=== PATIENT | male | born 1950 | race Caucasian/White ===

== ENCOUNTER → 2017-12-28 09:06 | Outpatient (CLI) | payer MEDICARE, SELFPAY ==
[2017-12-28 10:32] LABS: Alanine Aminotransferase 33 IU/L (21-72); Albumin 4.1 g/dL (3.5-5.0); Albumin Globulin Ratio 1.4 (1.0-2.8); Alkaline Phosphatase 59 U/L (38-126); Aspartate Aminotransferase 24 IU/L (17-59); BUN Creatinine Ratio 24.4 (6-22); Bilirubin Total 0.4 mg/dL (0.2-1.3); Blood Urea Nitrogen 22 mg/dL (9-20); Calcium 9.3 mg/dL (8.4-10.2); Carbon Dioxide 26 mmol/L (22-32); Chloride 106 mmol/L (98-107); Cholesterol 143 mg/dL (140-199); Estimated Glomerular Filt Rate > 60.0 mL/min (>60); Globulin 2.9 g/dL (1.7-4.1); Glucose 98 mg/dL (80-110); HDL Cholesterol 41 mg/dL (40-60); HEMOLYSIS < 15 (0-50); LDL Cholesterol Calculated 85 mg/dL (<100); Potassium 4.3 mmol/L (3.4-5.1); Sodium 144 mmol/L (137-145); Triglycerides 85 mg/dL (35-150)
[2017-12-28 10:50] LABS: Prostate Specific Antigen Scrn 0.482 ng/mL (0.1-4.0)
[2017-12-28 12:27] LABS: Free T3, Triiodothyronine Free 3.45 pg/mL (2.77-5.27); Free T4, Direct Thyroxine 1.24 ng/dL (0.78-2.19)
== END ==
PROVIDERS: PCP Internal Medicine; Visit Provider Internal Medicine
DX: E03.9 Hypothyroidism, unspecified (principal); E78.5 Hyperlipidemia, unspecified; Z12.5 Encounter for screening for malignant neoplasm of prostate
CPT/HCPCS: 36415; 80053; 80061; 84439; 84443; 84481; G0103

== ENCOUNTER → 2019-04-05 08:30 | Outpatient (CLI) | payer MEDICARE, SELFPAY ==
[2019-04-05 09:27] LABS: Add Manual Diff / Slide Review NO; Basophils Absolute Auto 200 /uL (0-100); Basophils Percent Auto 2.7 % (0-2); Eosinophils Absolute Auto 400 /uL (0-450); Eosinophils Percent Auto 6.9 % (2-4); Hematocrit 39.6 % (41-53); Hemoglobin 13.6 g/dL (13.5-17.5); Lymphocytes Absolute Auto 2400 /uL (1100-4500); Mean Corpuscular HGB Conc 34.3 % (30-36); Mean Corpuscular Hemoglobin 31.3 PG (26-34); Mean Corpuscular Volume 91.5 fL (80-100); Monocytes Absolute Auto 500 /uL (0-900); Monocytes Percent Auto 8.8 % (3-14); Neutrophils Absolute Auto 2400 /uL (1500-7000); Neutrophils Percent Auto 40.6 % (50-75); Platelet Count 249 X10^3/uL (150-400); Red Blood Cell Count 4.33 X10^6/uL (4.5-5.9); Red Cell Distribution Width 12.6 % (11.6-14.8); White Blood Cell Count 5.9 X10^3/uL (4.5-11.0)
[2019-04-05 09:42] LABS: Alanine Aminotransferase 21 IU/L (<50); Albumin 4.2 g/dL (3.5-5.0); Albumin Globulin Ratio 1.6 (1.0-2.8); Alkaline Phosphatase 46 U/L (38-126); Aspartate Aminotransferase 27 IU/L (17-59); Bilirubin Total 0.6 mg/dL (0.2-1.3); Blood Urea Nitrogen 16 mg/dL (9-20); Calcium 9.3 mg/dL (8.4-10.2); Carbon Dioxide 27 mmol/L (22-32); Chloride 102 mmol/L (98-107); Cholesterol 242 mg/dL (140-199); Estimated Glomerular Filt Rate > 60.0 mL/min (>60); Globulin 2.7 g/dL (1.7-4.1); Glucose 99 mg/dL (80-110); HDL Cholesterol 41 mg/dL (40-60); HEMOLYSIS < 15 (0-50); LDL Cholesterol Calculated 172 mg/dL (<100); Potassium 4.8 mmol/L (3.4-5.1); Sodium 137 mmol/L (137-145); Total Protein 6.9 g/dL (6.3-8.2); Triglycerides 144 mg/dL (35-150)
[2019-04-05 10:11] LABS: TSH w/ Reflex to FT4 2.78 uIU/mL (0.47-4.68)
== END ==
PROVIDERS: PCP Internal Medicine; Visit Provider Internal Medicine
DX: E03.9 Hypothyroidism, unspecified (principal); K21.9 Gastro-esophageal reflux disease without esophagitis; E78.5 Hyperlipidemia, unspecified
CPT/HCPCS: 36415; 80053; 80061; 84403; 84443; 85025

== ENCOUNTER → 2019-05-09 14:56 | Outpatient (CLI) | payer MEDICARE, SELFPAY ==
[2019-05-09 15:32] LABS: Add Manual Diff / Slide Review NO; Basophils Absolute Auto 100 /uL (0-100); Basophils Percent Auto 1.3 % (0-2); Eosinophils Absolute Auto 300 /uL (0-450); Eosinophils Percent Auto 4.8 % (2-4); Hematocrit 39.3 % (41-53); Hemoglobin 13.6 g/dL (13.5-17.5); Lymphocytes Absolute Auto 2300 /uL (1100-4500); Lymphocytes Percent Auto 31.5 % (25-40); Mean Corpuscular HGB Conc 34.6 % (30-36); Mean Corpuscular Hemoglobin 31.5 PG (26-34); Mean Corpuscular Volume 91.1 fL (80-100); Monocytes Absolute Auto 500 /uL (0-900); Monocytes Percent Auto 6.9 % (3-14); Neutrophils Absolute Auto 4000 /uL (1500-7000); Neutrophils Percent Auto 55.5 % (50-75); Platelet Count 258 X10^3/uL (150-400); Red Blood Cell Count 4.31 X10^6/uL (4.5-5.9); Red Cell Distribution Width 12.5 % (11.6-14.8); White Blood Cell Count 7.3 X10^3/uL (4.5-11.0)
== END ==
PROVIDERS: PCP Internal Medicine; Visit Provider Internal Medicine
DX: D64.9 Anemia, unspecified (principal)
CPT/HCPCS: 36415; 85025

== ENCOUNTER 2019-10-19 10:01 | Emergency (ER) | payer MEDICARE, SELFPAY ==
[2019-10-19 10:02] VITALS: BP 155/74; PULSE 65; RESP 15; TEMP 36.7; O2SAT 99; BMI 24.8
--- NOTE | 2019-10-19 10:58 | ED_ITS ---
HPI - Fall <Una Mcintyre PA-C - Last Filed: 10/19/19 22:53> General Chief Complaint: Fall Stated Complaint: FELL OFF LADDER YESTERDAY,HIT BACK OF HEAD Time Seen by Provider: 10/19/19 10:57 Source: patient Mode of arrival: Ambulatory History of Present Illness HPI Narrative: This is a 69-year-old gentleman with a history of arthritis who presents to the emergency department complaining of worsening headache, dizziness since this morning after sustaining a fall yesterday onto concrete and hitting the back of his head. He says yesterday around 4:00 p.m. he was standing a few feet up on the ladder and went to step onto a retaining wall and the ladder tipped over to the side causing him to fall backwards hitting his head on concrete. He says he did not lose consciousness, no one saw it happen however his was in the area and she heard this latter fall and arrives shortly after he says she did not notice anything abnormal in his speech patterns or mentation and that he was conscious immediately afterwards. He laid there for a while and then went inside had a mild headache and a goose egg on the top/ back of his head. He woke in the middle of the night to turn and he felt dizzy with turning over and this morning when he woke up he was having intermittent dizziness issues. He has difficulty describing this although he says he feels like it is affecting his balance a little bit and he thinks that his dizziness may be associated with movement. He says he is not experiencing dizziness right now. His headache is a 7/10; he says he normally never gets headaches and for him a very severe headache would be 5/10 so this is worse than any headache he has ever had. He says his headache was bad when he woke up this morning but it seemed to ?get worse when I ate a breakfast. He describes the headache as an aching band with constant pain that goes around his head entirely; encompassing his eyes and sinuses and nose and then encircling to the back of his head. He had a little bit of soreness in his shoulders after this happened; he thinks that his head bounced off of the concrete but he has not had any neck pain associated with this. He does not take any blood thinners however he notes he takes naproxen every day for his arthritis. He denies loss of consciousness, any numbness or tingling, weakness in his extremities, vision changes, syncope, lightheadedness, nausea, vomiting, blood or drainage from his ears, nose, or any other symptoms. He states his head injury is an isolated injury and he did not hurt anything else. MD complaint: fall Onset (ago): hour(s) (18) Fall from: from height (distance) (8 ft) Fall witnessed: no Place fall occurred: home Loss of consciousness: none Prolonged down time: minute(s) (4) Symptoms prior to fall: none Context: tripped/slipped Location of injury: head Severity: severe Severity scale (1-10): 7 Quality: aching Associated symptoms (after fall): vertigo (dizziness) Related Data Home Medications Medication Instructions Recorded Confirmed LEVOTHYROXINE SODIUM (Synthroid) 112 mcg PO #0 01/28/10 11/08/17 atorvastatin [Lipitor] 20 mg PO HS #0 01/28/10 11/08/17 naproxen sodium 440 mg PO BID #0 07/30/11 11/08/17 azelastine 2 spray INTRANASAL BID #0 01/15/17 11/08/17 gabapentin [Neurontin] 600 mg PO SEE INSTRUCTIONS #0 01/15/17 11/08/17 ranitidine HCl 150 mg PO HS #0 01/15/17 11/08/17 ascorbic acid (vitamin C) 100 mg PO QDAY #0 01/19/17 11/08/17 cholecalciferol (vitamin D3) PO QDAY #0 01/19/17 11/08/17 [Vitamin D3] fluticasone propionate [Flonase 2 spray INTRANASAL QDAY #0 01/19/17 11/08/17 Allergy Relief] multivitamin [Multiple Vitamins] 1 tab PO QDAY #0 01/19/17 11/08/17 omega 1-foe-ytq-fish oil [Fish Oil] PO QDAY #0 01/19/17 11/08/17 sildenafil (pulm.hypertension) 20 20 mg PO TID 11/08/17 11/08/17 mg tablet Allergies Allergy/AdvReac Type Severity Reaction Status Date / Time amoxicillin [AMOXICILLIN] Allergy Intermediate Verified 10/19/19 10:07 Penicillins [PENICILLINS] Allergy Intermediate Verified 10/19/19 10:07 SULFA Allergy Intermediate RASH Uncoded 11/08/17 19:02 Review of Systems <Una Mcintyre PA-C - Last Filed: 10/19/19 22:53> Review of Systems Narrative: GENERAL: Denies chills, fatigue, malaise, fever, sweats. HEENT: Denies sinus pain, ear pain, sore throat, difficulty swallowing, positive for intermittent dizziness. RESPIRATORY: Denies dyspnea, cough, wheezing, hemoptysis, sputum. CARDIOVASCULAR: Denies chest pain, palpitations, orthopnea, edema, GASTROINTESTINAL: Denies nausea, vomiting, abdominal pain, diarrhea, constipation, melena. : Denies dysuria, frequency, incontinence, hematuria, urinary retention. MUSCULOSKELETAL: denies weakness, joint pain, or bony pain SKIN: Denies rash, skin lesions, or other NEUROLOGIC: Denies weakness, positive for headache, denies numbness, change in s peech, confusion, seizures, incoordination. PSYCHIATRIC: No concerning psychosocial issues. 12 point review of systems is negative except for those stated above Patient History <Una Mcintyre PA-C - Last Filed: 10/19/19 22:53> Social History Smoking Status: Never smoker alcohol intake: current Smoking Status: Never smoker alcohol intake frequency: holidays/special occasions only Substance Use Type: does not use Exam <Una Mcintyre PA-C - Last Filed: 10/19/19 22:53> Narrative Exam Narrative: GENERAL: [69] year old patient appears stated age. Well- nourished, well-developed patient, in mild distress. HEAD: There is a 3cm x3cm area of skin abrasion and bruising on the posterior superior Right. Otherwise Atraumatic. Normocephalic. EYES: Pupils equal round and reactive. Extraocular motions intact. No scleral icterus. No injection or drainage. ENT: Nose without bleeding, purulent drainage. Throat without erythema, tonsillar hypertrophy or exudate. Airway patent. External ear canals are normal in appearance without bleeding or drainage, left tympanic membrane is normal in appearance, pearly guzman with cone of light, right tympanic membrane has a mild effusion with clear fluid without erythema, or bulging. NECK: Trachea midline. Non tender. CARDIOVASCULAR: Regular rate and rhythm without murmurs, gallops, or rubs. RESPIRATORY: Clear to auscultation. Breath sounds equal bilaterally. No wheezes, rales, or rhonchi. GASTROINTESTINAL: Abdomen soft, non-tender, nondistended. EXTREMITIES: No edema or joint tenderness. BACK: Cervical spine and spinous processes are Nontender without deformity or crepitance. No flank tenderness. No tenderness with palpation of the ribs posteriorly or laterally. NEURO: AOx3. Cranial nerves intact, sensation and strength intact all 4 extremities strength is 5/5 bilaterally SKIN: No rash, erythema, contusions, abrasions, lacerations, of visible areas including back, abdomen and extremities Initial Vital Signs Initial Vital Signs: Vital Signs Temperature 98.1 F 10/19/19 10:02 Pulse Rate 65 10/19/19 10:02 Respiratory Rate 15 10/19/19 10:02 Blood Pressure 155/74 H 10/19/19 10:02 Pulse Oximetry 99 10/19/19 10:02 <Cecy Recinos DO - Last Filed: 10/24/19 07:42> Initial Vital Signs Initial Vital Signs: Vital Signs Temperature 98.1 F 10/19/19 10:02 Pulse Rate 65 10/19/19 10:02 Respiratory Rate 15 10/19/19 10:02 Blood Pressure 155/74 H 10/19/19 10:02 Pulse Oximetry 99 10/19/19 10:02 Scores <JOSEY Vargas Last Filed: 10/19/19 22:53> GCS Shani coma scale eye opening: Spontaneous [place] coma scale verbal response: Orientated [place] coma scale motor response: Obey commands Shani coma scale total score: 15 Nexus Score for C-Spine Focal Neurologic deficit present: No Midline spinal tenderness present: No Altered level of conciousness present: No Intoxication present: No Distracting Injury Present: No Nexus Criteria for C-spine: 0 Course <JOSEY Vargas Last Filed: 10/19/19 22:53> Orders Ordered: Discontinued Medications Acetaminophen (Tylenol) 975 mg PO NOW ONE Stop: 10/19/19 11:40 Last Admin: 10/19/19 12:51 Dose: Not Given Documented by: SCANAPO Vital Signs Vital signs: Vital Signs - 8 hr 10/19/19 10:02 10/19/19 11:57 Temperature 98.1 F Pulse Rate 65 56 L Respiratory Rate 15 16 Blood Pressure 155/74 H 136/83 Pulse Oximetry 99 98 <Cecy Recinos DO - Last Filed: 10/24/19 07:42> Orders Ordered: Discontinued Medications Acetaminophen (Tylenol) 975 mg PO NOW ONE Stop: 10/19/19 11:40 Last Admin: 10/19/19 12:51 Dose: Not Given Documented by: SCANAPO Vital Signs Vital signs: Vital Signs - 8 hr 10/19/19 10:02 10/19/19 11:57 Temperature 98.1 F Pulse Rate 65 56 L Respiratory Rate 15 16 Blood Pressure 155/74 H 136/83 Pulse Oximetry 99 98 MDM - Fall <Una Mcintyre PA-C - Last Filed: 10/19/19 22:53> Differential Diagnosis Differential diagnosis: Likely concussion without loss of consciousness and other (head bleed, closed head injury, cervical sprain, cervical strain, cervical fx) Medical Records Attestation: I reviewed the patient's medical records. Medical records narrative: This is a 69-year-old gentleman with no significant medical history who presents to the emergency department after sustaining a fall yesterday from approximately 8 ft hitting the back of his head on concrete. There was no loss of consciousness, no C-spine pain, not on blood thinners, however his worsening headache today as well as intermittent dizziness this morning was concerning for a possible bleed. Differential diagnoses considered include: Concussion, closed head injury, brain bleed, post concussive syndrome, vertigo. CT scan of head and neck were both negative. Labs were not obtained, patient was discharged home with emergency return precautions, and close PCP follow-up. All questions were answered. Imaging Data CT scan - head: Attestation: I personally reviewed and interpreted this imaging study as follows: Radiologist's Impression: [address] [address] [address] Scan Report Signed Patient: Kan Soler EMR#: [id number] : 2Acct:[id number] Age/Sex: 69 / MDate of Service: 10/19/19 Loc: ED Accession Number: [id number] Procedure: CT head/brain wo con Ordering Provider: Una Mcintyre P.A-C PROCEDURE: CT HEAD/BRAIN WO CON INDICATIONS: fall 8 feet to concrete yesterday, dizzy, worsening Headache TECHNIQUE: Noncontrast 4.5 mm thick angled axial sections acquired from the foramen magnum to the vertex, with coronal and sagittal reformats. For radiation dose reduction, the following was used: automated exposure control, adjustment of mA and/or kV according to patient size. COMPARISON: None. FINDINGS: Image quality: Excellent. CSF spaces: Basal cisterns are patent. No extra-axial fluid collections. Ventricles are normal in size and shape. Brain: No midline shift. No intracranial masses or hemorrhage. Guzman-white matter interface is normal. Subtle areas of low attenuation are seen within the periventricular white matter of the supratentorial brain. Skull and face: Calvarium and visualized facial bones are intact, without suspicious lesions. Sinuses: Visualized sinuses and mastoids are clear. IMPRESSION: 1. No acute intracranial hemorrhage. 2. Mild chronic small vessel ischemic changes. Dictated by: Ricardo Nj M.D. on 10/19/2019 at 11:00 Approved by: Ricardo Nj M.D. on 10/19/2019 at 11:05 CT neck: Attestation: I personally reviewed and interpreted this imaging study as follows: Radiologist's Impression: [place] [address] CT Scan Report Signed Patient: Kan Soler EMR#: [id number] : 2Acct:[id number] Age/Sex: 69 / MDate of Service: 10/19/19 Loc: ED Accession Number: [id number] Procedure: CT cervical spine wo con Ordering Provider: Una Mcintyre P.A-C PROCEDURE: CT CERVICAL SPINE WO CON INDICATIONS: fall 8 feet to concrete yesterday, dizzy, worsening Headache TECHNIQUE: Noncontrast 3 mm thick sections acquired from the skull base to the T4 level. Sagittal and coronal reformats were then constructed. For radiation dose reduction, the following was used: automated exposure control, adjustment of mA and/or kV according to patient size. COMPARISON: None. FINDINGS: Image quality: Diagnostic. Bones: The craniocervical and atlantoaxial joints are well-maintained. The odontoid is intact. The vertebral body heights and prevertebral soft tissues are within normal limits throughout the cervical spine without evidence to suggest acute compression fracture. No other fractures are evident within the cervical spine. The bone mineralization is within normal limits. Moderate degenerative changes of the cervical spine are identified, more prominent involving the mid to lower cervical levels. There is moderate disc height loss at the levels of C4-5 and C5-6. There also are areas of scattered mild to moderate facet arthrosis. There is grade one anterolisthesis of C3 on C4 by approximately 2 mm Soft tissues: No prevertebral soft tissue swelling. The imaged lung apices are clear. Imaged portions of the mediastinum are unremarkable. Otherwise, the remainder of the imaged soft tissues of the neck are within normal limits. IMPRESSION: 1. No acute fracture of the cervical spine. 2. Moderate degenerative changes of the cervical spine. Dictated by: Ricardo Nj M.D. on 10/19/2019 at 11:14 Approved by: Ricardo Nj M.D. on 10/19/2019 at 11:19 MDM Narrative Medical decision making narrative: This is a well-appearing 69-year-old previously healthy gentleman who presented with complaints of a 7/10 headache, and some dizziness this morning after sustaining a fall from 8 ft (standing on a 2 ft ladder) on to concrete yesterday and hitting the back of his head without loss of consciousness. Differential diagnoses include, TBI, concussion, brain bleed, skull fracture, closed head injury, cervical sprain, cervical strain, cervical fracture. Physical and neuro exam showed no deficits, CT scan was obtained due to patient's worsening headache and new intermittent dizziness this morning. This was negative for intracranial bleed. Discharge Plan Departure Patient Disposition: Home Clinical Impression: Fall from height of greater than 3 feet Concussion Qualifiers: Encounter type: initial encounter Loss of consciousness presence/duration: without LOC Qualified Code(s): S06.0X0A - Concussion without loss of consciousness, initial encounter Traumatic injury of head Qualifiers: Encounter type: initial encounter Qualified Code(s): S09.90XA - Unspecified injury of head, initial encounter Discharge Date/Time: 10/19/19 13:01 Instructions: DI for Concussion, How to Prevent Falls, DI for Postconcussion Syndrome Activity Restrictions/Additional Instructions: Thank you for letting us be part of your care in the emergency department today. There is no evidence of an emergent or life threatening illness at this time, but follow up with your doctor in 1-2 days is recommended nonetheless to continue to rule out serious underlying causes of your symptoms. Please call the office for an appointment. Please return to the Emergency Department for any worsening or persistent symptoms. Please take medications as directed. The CT scans we took today of your head and neck did not reveal any fractures or any bleeds or anything else of concern. That being said you likely have a concussion 2nd to your fall yesterday and you may experience some ongoing sequela for the next few weeks including continued intermittent headaches and other symptoms please refer to the information about concussions. It is very important that you pay close attention to how you are doing and ask others to check in on you frequently, if you develop any worsening symptoms including changes of vision difficulty with balance worsening headache, nausea and or vomiting, or anything else of concern to you please seek medical care immediately. I recommend you take Tylenol for pain it is okay to continue to take her Aleve as usual. you should minimize any some jogging running or contact sports for the next few weeks as this could exacerbate your discomfort. Please follow-up with your primary care physician in the next 2-5 days for re- evaluation. Prescriptions: No Action sildenafil (pulm.hypertension) 20 mg tablet 20 mg PO TID RF: 0 atorvastatin [Lipitor] 20 MG tablet 20 mg PO HS Qty: 0 RF: 0 LEVOTHYROXINE SODIUM (Synthroid) 112 mcg PO Qty: 0 RF: 0 naproxen sodium 220 MG capsule 440 mg PO BID Qty: 0 RF: 0 gabapentin [Neurontin] 600 MG tablet 600 mg PO SEE INSTRUCTIONS Qty: 0 RF: 0 ranitidine HCl 150 MG tablet 150 mg PO HS Qty: 0 RF: 0 azelastine 137 MCG/0.137 ML aerosol,spray 2 spray Intranasal BID Qty: 0 RF: 0 fluticasone propionate [Flonase Allergy Relief] 9.9 ML spray,suspension 2 spray Intranasal QDAY Qty: 0 RF: 0 multivitamin [Multiple Vitamins] 1 EACH tablet 1 tab PO QDAY Qty: 0 RF: 0 ascorbic acid (vitamin C) 500 mg Tablet 100 mg PO QDAY Qty: 0 RF: 0 cholecalciferol (vitamin D3) [Vitamin D3] 50 mcg (2,000 unit) Tablet PO QDAY Qty: 0 RF: 0 omega 0-dsh-rtu-fish oil [Fish Oil] 1,000 mg (120 mg-180 mg) Capsule PO QDAY Qty: 0 RF: 0 Referrals: Ajay Gan MD [Primary Care Provider] - <Cecy Recinos DO - Last Filed: 10/24/19 07:42> Cosign ED Attending Cosignature Attestation: I was immediately available in the department for consultation. Documentation has been reviewed. I agree with assessment and plan.
--- NOTE | 2019-10-19 11:39 | DI.CT.S_ITS ---
PROCEDURE: CT HEAD/BRAIN WO CON INDICATIONS: fall 8 feet to concrete yesterday, dizzy, worsening Headache TECHNIQUE: Noncontrast 4.5 mm thick angled axial sections acquired from the foramen magnum to the vertex, with coronal and sagittal reformats. For radiation dose reduction, the following was used: automated exposure control, adjustment of mA and/or kV according to patient size. COMPARISON: None. FINDINGS: Image quality: Excellent. CSF spaces: Basal cisterns are patent. No extra-axial fluid collections. Ventricles are normal in size and shape. Brain: No midline shift. No intracranial masses or hemorrhage. Guzman-white matter interface is normal. Subtle areas of low attenuation are seen within the periventricular white matter of the supratentorial brain. Skull and face: Calvarium and visualized facial bones are intact, without suspicious lesions. Sinuses: Visualized sinuses and mastoids are clear. IMPRESSION: 1. No acute intracranial hemorrhage. 2. Mild chronic small vessel ischemic changes. Dictated by: Ricardo Nj M.D. on 10/19/2019 at 11:00 Approved by: Ricardo Nj M.D. on 10/19/2019 at 11:05
--- NOTE | 2019-10-19 11:41 | DI.CT.S_ITS ---
PROCEDURE: CT CERVICAL SPINE WO CON INDICATIONS: fall 8 feet to concrete yesterday, dizzy, worsening Headache TECHNIQUE: Noncontrast 3 mm thick sections acquired from the skull base to the T4 level. Sagittal and coronal reformats were then constructed. For radiation dose reduction, the following was used: automated exposure control, adjustment of mA and/or kV according to patient size. COMPARISON: None. FINDINGS: Image quality: Diagnostic. Bones: The craniocervical and atlantoaxial joints are well-maintained. The odontoid is intact. The vertebral body heights and prevertebral soft tissues are within normal limits throughout the cervical spine without evidence to suggest acute compression fracture. No other fractures are evident within the cervical spine. The bone mineralization is within normal limits. Moderate degenerative changes of the cervical spine are identified, more prominent involving the mid to lower cervical levels. There is moderate disc height loss at the levels of C4-5 and C5-6. There also are areas of scattered mild to moderate facet arthrosis. There is grade one anterolisthesis of C3 on C4 by approximately 2 mm Soft tissues: No prevertebral soft tissue swelling. The imaged lung apices are clear. Imaged portions of the mediastinum are unremarkable. Otherwise, the remainder of the imaged soft tissues of the neck are within normal limits. IMPRESSION: 1. No acute fracture of the cervical spine. 2. Moderate degenerative changes of the cervical spine. Dictated by: Ricardo Nj M.D. on 10/19/2019 at 11:14 Approved by: Ricardo Nj M.D. on 10/19/2019 at 11:19
[2019-10-19 11:57] VITALS: BP 136/83; PULSE 56; RESP 16; O2SAT 98
== END 2019-10-19 13:01 | disposition home or self-care (01) ==
PROVIDERS: Emergency Provider Student in an Organized Health Care Education/Training Program; PCP Internal Medicine
DX: S06.0X0A Concussion without loss of consciousness, initial encounter (principal); W11.XXXA Fall on and from ladder, initial encounter
CPT/HCPCS: 70450; 72125; 99283; 99284

== ENCOUNTER → 2020-03-13 09:42 | Outpatient (CLI) | payer MEDICARE, SELFPAY ==
[2020-03-13 10:52] LABS: Add Manual Diff / Slide Review NO; Basophils Absolute Auto 100 /uL (0-100); Basophils Percent Auto 1.3 % (0-2); Eosinophils Absolute Auto 400 /uL (0-450); Hematocrit 40.1 % (41-53); Hemoglobin 13.7 g/dL (13.5-17.5); Lymphocytes Absolute Auto 2300 /uL (1100-4500); Lymphocytes Percent Auto 37.2 % (25-40); Mean Corpuscular HGB Conc 34.3 % (30-36); Mean Corpuscular Hemoglobin 31.7 PG (26-34); Mean Corpuscular Volume 92.6 fL (80-100); Monocytes Absolute Auto 500 /uL (0-900); Monocytes Percent Auto 8.2 % (3-14); Neutrophils Absolute Auto 2900 /uL (1500-7000); Neutrophils Percent Auto 46.3 % (50-75); Platelet Count 250 X10^3/uL (150-400); Red Blood Cell Count 4.33 X10^6/uL (4.5-5.9); Red Cell Distribution Width 12.6 % (11.6-14.8); White Blood Cell Count 6.3 X10^3/uL (4.5-11.0)
[2020-03-13 11:32] LABS: Alanine Aminotransferase 23 IU/L (<50); Albumin 4.3 g/dL (3.5-5.0); Albumin Globulin Ratio 1.5 (1.0-2.8); Alkaline Phosphatase 53 U/L (38-126); Aspartate Aminotransferase 29 IU/L (17-59); BUN Creatinine Ratio 24.7 (6-22); Bilirubin Total 0.8 mg/dL (0.2-1.3); Blood Urea Nitrogen 21 mg/dL (9-20); Calcium 9.5 mg/dL (8.4-10.2); Carbon Dioxide 30 mmol/L (22-32); Chloride 100 mmol/L (98-107); Cholesterol 161 mg/dL (140-199); Estimated Glomerular Filt Rate > 60.0 mL/min (>60); Globulin 2.8 g/dL (1.7-4.1); Glucose 92 mg/dL (80-110); HDL Cholesterol 61 mg/dL (40-60); HEMOLYSIS < 15 (0-50); LDL Cholesterol Calculated 75 mg/dL (<100); Potassium 4.8 mmol/L (3.4-5.1); Sodium 135 mmol/L (137-145); Total Protein 7.1 g/dL (6.3-8.2); Triglycerides 127 mg/dL (35-150)
[2020-03-13 12:01] LABS: TSH w/ Reflex to FT4 1.68 uIU/mL (0.47-4.68)
[2020-03-13 12:03] LABS: Prostate Specific Antigen Scrn 0.417 ng/mL (0.1-4.0)
== END ==
PROVIDERS: PCP Internal Medicine; Referring Provider Internal Medicine; Visit Provider Internal Medicine
DX: E03.9 Hypothyroidism, unspecified (principal); K21.9 Gastro-esophageal reflux disease without esophagitis; E78.5 Hyperlipidemia, unspecified; Z12.5 Encounter for screening for malignant neoplasm of prostate
CPT/HCPCS: 36415; 80053; 80061; 84443; 85025; G0103